=== PATIENT | female | born 1965 | race Caucasian/White ===

== ENCOUNTER 2024-03-15 17:46 | Emergency (ER) | payer BC ==
[2024-03-15 18:21] LABS: BASOPHILS ABSOLUTE AUTO 0.06 K/uL (0.00-0.10); BASOPHILS PERCENT AUTO 0.8 % (0.1-1.3); EOSINOPHILS ABSOLUTE AUTO 0.09 K/uL (0.00-0.40); EOSINOPHILS PERCENT AUTO 1.3 % (0.0-5.4); HEMATOCRIT 39.6 % (34.3-46.0); HEMOGLOBIN 13.9 g/dL (11.2-15.5); IMMATURE GRAN PERCENT AUTO 0.1 % (0.0-0.7); LYMPHOCYTES ABSOLUTE AUTO 2.35 K/uL (0.8-3.3); LYMPHOCYTES PERCENT AUTO 33.2 % (11.4-47.7); MEAN CORPUSCULAR HGB CONC 35.1 g/dL (31.6-35.5); MEAN CORPUSCULAR VOLUME 88.2 fL (81.4-99.0); MONOCYTES ABSOLUTE AUTO 0.51 K/uL (0.20-0.90); MONOCYTES PERCENT AUTO 7.2 % (3.3-12.6); NEUTROPHILS ABSOLUTE AUTO 4.06 K/uL (1.0-7.6); NEUTROPHILS PERCENT AUTO 57.4 % (40.0-78.1); PLATELET COUNT,PLT 292 K/uL (130-375); RED BLOOD CELL COUNT 4.49 M/uL (3.77-5.24); WHITE BLOOD CELL COUNT,WBC 7.1 K/uL (3.2-11.0)
[2024-03-15 18:23] LABS: IMMATURE GRAN ABSOLUTE AUTO 0.01 K/uL (0.00-0.23)
[2024-03-15] MEDS: Sodium Chloride 0.9% 1,000 ML IV SCH (18:33)
[2024-03-15 18:53] LABS: CALCIUM 9.2 mg/dL (8.5-10.1); CREATININE 0.9 mg/dL (0.6-1.0); EST CRCL DRUG DOSING (CG) 62.06 mL/min; POTASSIUM,K 3.6 mmol/L (3.6-5.2); TROPONIN I HIGH SENSITIVITY 5.8 pg/mL (<=60.3)
[2024-03-15 18:54] LABS: ANION GAP 16.6 mmol/L (5.0-14.0)
[2024-03-15] MEDS: Metoprolol Tartrate 5 MG/5 ML SDV IVPUSH ONE (19:52)
== END 2024-03-15 19:40 | disposition home or self-care (01) ==
LOC: JP.ED 17:46
DX: E86.0 Dehydration (principal); Z79.899 Other long term (current) drug therapy
CPT/HCPCS: 36415; 71045; 80048; 83735; 84484; 85025; 93005; 96360; 99285; J7030

== ENCOUNTER 2024-05-10 07:15 | Day surgery (SDC) | payer BC ==
[2024-05-10] MEDS ORDERED: fentaNYL 50 MCG/ML SDV ONE (07:28)
[2024-05-10] MEDS ORDERED: Propofol 200 MG/20 ML SDV ONE (07:28)
[2024-05-10] MEDS ORDERED: Midazolam 1 MG/ML 2 ML SDV ONE (07:28)
[2024-05-10] MEDS: Sodium Chloride 0.9% 1,000 ML IV SCH (07:39)
== END 2024-05-10 10:24 | disposition home or self-care (01) ==
LOC: JP.SDS 07:15
PROVIDERS: ATTEND Surgery
DX: K64.9 Unspecified hemorrhoids (principal)
CPT/HCPCS: 00813; 43239; 45398; 88305; J2250; J2704; J3010; J7030